=== PATIENT | female | born 1975 | race African-American/Black ===

== ENCOUNTER 2017-03-07 14:11 | Outpatient (CLI) | payer BC, MEDICARE ==
[~2017-03-07] VITALS: Ht 165.1 cm; Wt 74.8 kg
[2017-03-07 14:24] VITALS: BP 113/71
[2017-03-07 14:43] LABS: BASOPHILS % (AUTO) 1 % (0-10); EOSINOPHILS # (AUTO) 0.1 10^3/uL (0.0-0.3); EOSINOPHILS % (AUTO) 2 % (0-10); LYMPHOCYTES # (AUTO) 1.8 X 10^3 (1.0-4.0); LYMPHOCYTES % (AUTO) 32 % (12-44); MEAN CORPUSCULAR HEMOGLOBIN 18 PG (25-34); MEAN CORPUSCULAR HGB CONC 28 G/DL (32-36); MEAN CORPUSCULAR VOLUME 64 FL (80-99); MEAN PLATELET VOLUME 9.7 FL (7.4-10.4); MONOCYTES # (AUTO) 0.5 X 10^3 (0.0-1.0); MONOCYTES % (AUTO) 9 % (0-12); NEUTROPHILS # (AUTO) 3.1 X 10^3 (1.8-7.8); NEUTROPHILS % (AUTO) 57 % (42-75); PLATELET COUNT 262 10^3/uL (130-400); RED BLOOD COUNT 4.11 10^6/uL (4.35-5.85); RED CELL DISTRIBUTION WIDTH 21.1 % (10.0-14.5); WHITE BLOOD COUNT 5.4 10^3/uL (4.3-11.0)
[2017-03-14] MEDS ORDERED: IBUP-1780 PO (07:45)
[2017-03-14] MEDS ORDERED: OXYC-465 PO (07:45)
[2017-03-14] MEDS ORDERED: DOCU100C37 PO (07:45)
== END 2017-03-07 14:33 | disposition home or self-care (01) ==
LOC: PREOP 14:11
PROVIDERS: ATTEND Obstetrics & Gynecology
DX: Z01.812 Encounter for preprocedural laboratory examination (principal); Z11.2 Encounter for screening for other bacterial diseases; N92.0 Excessive and frequent menstruation with regular cycle; N85.2 Hypertrophy of uterus; D64.9 Anemia, unspecified
CPT/HCPCS: 36415; 85025; 86850; 86900; 86901; 87081

== ENCOUNTER 2017-03-12 12:50 | Outpatient (CLI) | payer BC ==
[~2017-03-12] VITALS: Ht 165.1 cm; Wt 74.8 kg
[2017-03-12] VITALS (10 sets, daily range): BP systolic 112–129; BP diastolic 74–94
[2017-03-12] MEDS ORDERED: NS IV 500 ML 500 ML IV SCH (14:00)
[2017-03-12] MEDS: ACETAMINOPHEN 500 MG TAB (TYLENOL) PO SCH ×2 (14:25→18:00)
[2017-03-12] MEDS ORDERED: diphenhydrAMINE 25 MG TAB (BENADRYL) PO NR (17:00)
[2017-03-14] MEDS ORDERED: DOCU100C37 PO (07:45)
[2017-03-14] MEDS ORDERED: IBUP-1780 PO (07:45)
[2017-03-14] MEDS ORDERED: OXYC-465 PO (07:45)
== END 2017-03-12 19:30 | disposition home or self-care (01) ==
LOC: SDC 12:50
PROVIDERS: ATTEND Obstetrics & Gynecology
DX: D64.9 Anemia, unspecified (principal)
CPT/HCPCS: 86850; 86900; 86901; 86920

== ENCOUNTER 2017-03-13 11:00 | Day surgery (SDC) | payer BC, MEDICARE ==
[~2017-03-13] VITALS: Ht 165.1 cm; Wt 74.8 kg
[2017-03-13 11:00] VITALS: BP 135/94
[2017-03-13] MEDS: LACTATED RINGERS 1,000 ML IV PRN ×3 (11:30→15:45)
[2017-03-13 11:52] LABS: BASOPHILS % (AUTO) 1 % (0-10); EOSINOPHILS # (AUTO) 0.2 10^3/uL (0.0-0.3); EOSINOPHILS % (AUTO) 3 % (0-10); LYMPHOCYTES # (AUTO) 1.6 X 10^3 (1.0-4.0); LYMPHOCYTES % (AUTO) 30 % (12-44); MEAN CORPUSCULAR HEMOGLOBIN 21 PG (25-34); MEAN CORPUSCULAR HGB CONC 30 G/DL (32-36); MEAN CORPUSCULAR VOLUME 69 FL (80-99); MEAN PLATELET VOLUME 10.1 FL (7.4-10.4); MONOCYTES # (AUTO) 0.7 X 10^3 (0.0-1.0); MONOCYTES % (AUTO) 13 % (0-12); NEUTROPHILS % (AUTO) 54 % (42-75); PLATELET COUNT 258 10^3/uL (130-400); RED BLOOD COUNT 4.39 10^6/uL (4.35-5.85); RED CELL DISTRIBUTION WIDTH 22.8 % (10.0-14.5); WHITE BLOOD COUNT 5.6 10^3/uL (4.3-11.0)
[2017-03-13] MEDS ORDERED: BUP/EPI 0.25% 1:200,000 (MARCAINE) 30 ML VIAL ONE (11:59)
[2017-03-13] MEDS ORDERED: ceFAZolin 1,000 MG (ANCEF) VIAL ONE (12:06)
[2017-03-13] MEDS ORDERED: NS (IVPB) 50 ML ONE (12:06)
[2017-03-13] MEDS ORDERED: ESTRADIOL VAGINAL CREAM 42.5 GM (ESTRACE) VG ONE (12:18)
[2017-03-13] MEDS ORDERED: D5 LR IV SOLUTION 1,000 ML IV SCH (12:26)
[2017-03-13] MEDS ORDERED: ONDANSETRON 4 MG/2 ML (SDV) Z0FRAN IVP PRN ×2 (12:30→17:45)
[2017-03-13] MEDS ORDERED: MEPERIDINE (DEMEROL) INJ 100 MG/ML IM PRN (12:30)
[2017-03-13] MEDS ORDERED: ESTROGENS CONJ IV 25 MG/5 ML (PREMARIN) VIAL IVP ONE (12:30)
[2017-03-13] MEDS ORDERED: PROMETHAZINE INJ 25 MG/ML (PHENERGAN) AMP IM PRN (12:30)
[2017-03-13] MEDS ORDERED: WATER (STERILE) FOR INJ 10 ML BTL INJ ONE (12:30)
[2017-03-13] MEDS ORDERED: ceFAZolin 1 GM/NS 50 ML IVPB IV ONE ×2 (12:45)
[2017-03-13] MEDS ORDERED: MIDAZOLAM 2 MG/2 ML (VERSED) VIAL ONE (13:14)
[2017-03-13] MEDS ORDERED: fentaNYL INJECTION 250 MCG/5 ML AMP ONE (13:14)
[2017-03-13] MEDS ORDERED: LACTATED RINGERS 1,000 ML IV ONE ×4 (13:15→17:58)
[2017-03-13] MEDS ORDERED: DEXAMETHASONE PF 10 MG/ML (DECADRON) VIAL ONE (13:15)
[2017-03-13] MEDS ORDERED: proPOfol 200 MG/20 ML (DIPRIVAN) VIAL IV ONE (13:15)
[2017-03-13] MEDS ORDERED: ONDANSETRON 4 MG/2 ML (SDV) Z0FRAN ONE ×2 (13:15→17:01)
[2017-03-13] MEDS ORDERED: LIDOCAINE PF 2% 10 ML (XYLOCAINE) AMP ONE (13:15)
[2017-03-13] MEDS ORDERED: ROCURONIUM 50 MG/5 ML (ZEMURON) VIAL IV ONE ×2 (13:15→15:16)
[2017-03-13] MEDS ORDERED: SEVOFLURANE (ULTANE) 15 ML INHAL SOLN ONE ×15 (13:15→17:10)
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
[2017-03-13] MEDS ORDERED: KETOROLAC 30 MG/ML VIAL IVP PRN (13:30)
[2017-03-13] MEDS ORDERED: GLYCOPYRROLATE 0.2 MG/ML (ROBINUL) 2 ML VIAL ONE ×2 (16:56→17:10)
[2017-03-13] MEDS ORDERED: FUROSEMIDE 40 MG/4 ML INJ (LASIX) ONE (16:56)
[2017-03-13] MEDS ORDERED: NEOSTIGMINE (BLOXIVERZ ) 1 MG/1ML 10 ML VIAL ONE (16:56)
[2017-03-13] MEDS ORDERED: morphine INJ 10 MG/ML 1ML (SYR OR VIAL) ONE ×2 (16:58→17:01)
[2017-03-13] MEDS ORDERED: HYDROmorphone (DILAUDID) 2 MG/ML VIAL ONE (17:00)
[2017-03-13] MEDS ORDERED: KETOROLAC 30 MG/ML VIAL ONE (17:01)
[2017-03-13] MEDS ORDERED: fentaNYL INJECTION 100 MCG/2 ML AMP ONE (17:01)
[2017-03-13] MEDS ORDERED: WATER (STERILE) FOR INJECTION 10 ML ONE (17:01)
[2017-03-13] MEDS ORDERED: ESTROGENS CONJ IV 25 MG/5 ML (PREMARIN) VIAL ONE (17:01)
[2017-03-13] MEDS: MEPERIDINE (DEMEROL) INJ 50 MG/ML IVP PRN ×2 (17:44→17:53)
[2017-03-13] MEDS ORDERED: morphine INJ 10 MG/ML 1ML (SYR OR VIAL) IVP PRN (17:45)
[2017-03-13] MEDS ORDERED: IBUPROFEN 800 MG (MOTRIN) TAB PO SCH (18:00)
[2017-03-13 18:10] VITALS: BP 118/80
[2017-03-13 18:20] LABS: ALANINE AMINOTRANSFERASE 28 U/L (0-55); ALBUMIN 3.6 G/DL (3.2-4.5); ANION GAP 11 MMOL/L (5-14); ASPARTATE AMINO TRANSFERASE 43 U/L (5-34); BILIRUBIN,TOTAL 0.6 MG/DL (0.1-1.0); BLOOD UREA NITROGEN 7 MG/DL (7-18); BUN/CREATININE RATIO 9; CALCIUM 8.5 MG/DL (8.5-10.1); CARBON DIOXIDE 20 MMOL/L (21-32); CHLORIDE 109 MMOL/L (98-107); CREATININE SERUM 0.81 MG/DL (0.60-1.30); GFR ESTIMATED > 60; GLUCOSE 113 MG/DL (70-105); POTASSIUM 3.4 MMOL/L (3.6-5.0); SODIUM 140 MMOL/L (135-145); TOTAL PROTEIN 6.8 G/DL (6.4-8.2)
[2017-03-13 20:15] VITALS: BP 113/73
[2017-03-13] MEDS: oxyCODONE/APAP 10/325MG (PERCOCET 10) TABLET PO PRN (21:22)
[2017-03-14] VITALS: BP 103/60
[2017-03-14] MEDS ORDERED: KETOROLAC 30 MG/ML VIAL ONE ×2 (01:02→05:27)
[2017-03-14] MEDS: oxyCODONE/APAP 10/325MG (PERCOCET 10) TABLET PO PRN (01:20)
[2017-03-14 05:58] VITALS: BP 95/58
--- NOTE | 2017-03-14 06:47 | OPERATIVE REPORT ---
DATE OF SERVICE: 03/13/2017 PREOPERATIVE DIAGNOSES: Uteromegaly, dysfunctional uterine bleeding, likely uterine fibroids and pelvic pain and pressure. POSTOPERATIVE DIAGNOSES: Uteromegaly, dysfunctional uterine bleeding, likely uterine fibroids and pelvic pain and pressure with markedly enlarged multiple fibroid uterus. OPERATIVE PROCEDURE: Total laparoscopic hysterectomy with bilateral salpingectomy and left oophorectomy as well as cystoscopy. OPERATIVE DESCRIPTION: With the patient in the supine position under satisfactory general anesthesia, she was repositioned in the dorsal lithotomy position in the Yon stirrups, prepped, and draped in the usual fashion for abdominal and vaginal surgery. A weighted speculum was placed in the posterior points of the vagina. The cervix was exposed and grasped anteriorly with a single toothed tenaculum. The uterus was sounded to 12.5 cm with uterine sound. The cervix was then serially dilated with Koko dilators to accommodate a EDIS II manipulator, which was placed using a 6 mm x 10 cm uterine probe and a 35 mm colpotomy ring. Sutures of #1 Vicryl were placed at the 3 and 9 o'clock positions of the cervix to affix the manipulator to the uterus. The patient was brought in low dorsolithotomy position. Crawford catheter was placed in the urinary bladder and left to dependent drainage. The uterus was palpable to fingerbreadth above the umbilicus. A 12-mm incision was then made 4 fingerbreadths above the umbilicus and a stab wound in the left upper quadrant at Sauceda's point. The Veress needle was placed through the stab wound into the abdominal cavity. Correct placement confirmed with the water drop test. The abdomen was insufflated with 2.4 liters of carbon dioxide. A 12 mm port was placed through the 12 mm supraumbilical incision and the laparoscope was introduced and incisions of 8 mm were made in the right and left inferior portion of the upper quadrant on each side, several fingerbreaths above the umbilicus. All 3-port sites had been infiltrated with 0.5% Marcaine with epinephrine before incision placement. The 8 mm ports were placed through the right and left lateral incision. The patient was placed into Trendelenburg allowing the bowels to spill out of the pelvis. The pelvis was completely filled with multiple fibroid uterus. The uterus was reasonably mobile with manipulation, though the da Ender console was advanced onto the patient and docked and operative instruments were placed in the right and left lateral ports. I retired to the da Ender console. At the console, the uterus was examined. The right ovary was visible on the right side of the uterus. The left ovary was somewhat behind the uterus and was not clearly visible. The uterus again with multiple lobulated consistent with multiple uterine fibroids. The uterus could be manipulated around both with the vaginal manipulator and with the abdominal instruments. A 5 mm port had been placed between the midline and the right lateral port for additional manipulation assistance. Decision was made to proceed with the intended procedure, as there was no other concerning pathology. The right fallopian tube was grasped and elevated. The vessel sealer was used to clamp, cauterize and divide the mesosalpinx across to the side of uterus and then the ovary was from the uterus by using the vessel sealer across the uteroovarian pedicle. The round ligament was treated in the same manner as was the broad ligament and finally down on to the cardinal ligament. The same procedure was performed on the left. It was found that the IP ligament coursed down to the uterus and then reflected back to the ovary and there was not a plane for the fallopian tube from the ovary or the ovary from the uterus without comprising the blood supply. A decision was made to go ahead with left salpingo-oophorectomy. So, the IP ligament was clamped, cauterized and divided and then that was continued across to the round ligament and then across to the side of the uterus and down onto the cardinal ligament. Again, all of this dissection thus far had been done with some degree of difficulty using the assistant professor of art manipulator with the blunt instrument in to position and retract and hold the uterus to expose the area of dissection. With the adnexa mostly , attention was then turned to releasing the bladder. Again, the accessory manipulator with the bedside assistant professor of art was vital in proceeding with the surgery. The vessel sealer was replaced with a Monopolar shear. The anterior lower uterine segment was with some difficulty was exposed. The peritoneum was divided and the bladder carefully dissected well down off of the lower uterine segment off the cervix. A colpotomy incision was started at 12 o'clock position onto the colpotomy ring. That was continued first to the right, then to the left and then continuing circumferentially first clockwise and counterclockwise to expose the colpotomy ring. Again, there was some difficulty as the multiple numerous protruding fibroids made access continuously difficult, but by repositioning the retractors and repositioning the uterus eventually, the colpotomy was extended from the 9 o'clock to the 3 o'clock position around the cervix. Then, the uterus was rotated counterclockwise. The dissection was continued clockwise passed the cardinal ligament and to the uterosacral ligament. The uterus was then repositioned to allow access to the left side of the uterus and then dissection and exposure of the colpotomy ring was continued from the 9 o'clock position to about the 7 o'clock position again down onto the uterosacral ligament on that side. A number of vessels were encountered during this dissection. They were clamped, cauterized and sealed and divided in the process. The uterus was then displaced anteriorly. Again, the uterus was quite bulky. It was a 20-week size uterus. With some difficulty, the uterus was elevated. The assistant professor of art kept the uterus elevated. There was approximately 1 cm of posterior low uterine segment still attached to the vagina. This was divided and the uterus was completely free. There was no possibility of extracting the uterus intact, so the da Ender was undocked from the patient and the patient brought out of Trendelenburg and I went down below to morcellate and remove the uterus through the vagina. With the patient in the dorsolithotomy position, a weighted speculum was placed to the posterior points of the vagina and through the vaginal cuff into the cul-de-sac. Retractors were placed anteriorly, posteriorly using Diva retractors. The cervix was grasped with several tenacula and or towel clips and then coring morselization was performed removing the uterus in multiple relatively large fragments until the bulk of the uterus was reduced enough to allow removal of the remainder of the uterus. The anterior specimen was sent to pathology for permanent section in multiple pieces. The instruments were removed from the vagina. The patient was brought back into dorsolithotomy position, replaced in Trendelenburg, the da Ender console were advanced back on the patient and docked and then operative instruments were replaced in the ports. The pelvis was hemostatic. There had been about 3 or 400 cc of blood released when we removed the uterus. I suspect that that was primarily blood that had been retained in the uterus and morselization allowed that blood to seep out. Again, the uterus was quite large and would have had probably an excess of 500 cc of blood contained in it. The uterus was relatively bloodless by the time we had it completely extracted. The vaginal cuff was hemostatic. The vaginal cuff was closed with 3 V-Loc barbed sutures starting first on the right angle and continuing to about a [address] across the vaginal cuff, being sure to include the uterine vessels on the right side into the closure and then the same thing was done on the left. With the second suture and then a third suture was used to close the midportion of the cuff and reperitonealize the vaginal cuff. Both ureters were seen to peristalse before starting on the right, the left side could not be seen until after dissection was started, but it was seen to peristalse during the dissection and during the removal of the uterus and then during the closure of the vaginal cuff. The dissection was relatively closed in the matter of probably less than a centimeter on the left from the ureter because of the distorted course of the uterus due to this large uterus. The decision was made to do cystoscopy on completion of the laparascopic portion. With the pelvis completely hemostatic and the vaginal cuff closed, the pelvis was irrigated, hemostasis was assured, the laparoscopic portion of the procedure was terminated. The operative instruments were removed under direct vision and the da Ender console was undocked and removed from the patient. The operative ports were removed under direct vision. The abdomen was evacuated and insufflating gas in the process. Hemostasis was complete at the port sites. All 4-port sites were closed with deepali after closing the supraumbilical 12 mm incision with a [id number] suture of Vicryl in the fascia. The patient now brought back in low dorsolithotomy position, repositioned on the table for cystoscopy. The cystoscope was introduced and using saline as a distending medium the bladder was examined, the bladder was intact itself. Both ureters were seen to peristalse with easy reflux and repeated peristalsis on both sides. With that confirmed, the procedure was terminated. The speculum was replaced in the vagina. The vaginal cuff examined. It was completely hemostatic and reapproximated nicely. The sponge and needle counts were correct at this point. Estimated blood loss was around 500 cc. The patient tolerated the procedure well and was uneventfully awakened from her general anesthesia and transferred to the recovery room in stable condition with plans for 23-hour observation. Job ID: [id number] DocumentID: [id number] Dictated Date: 03/13/2017 17:15:36 Commercial Lending Assistant Date: 03/14/2017 06:46:14 Dictated By: MAXIMUS VELÁZQUEZ MD
--- NOTE | 2017-03-14 07:44 | Progress Note-Standard ---
Standard Progress Note Progress Notes/Assess & Plan Progress/Assessment & Plan this patient is without complaint. She is ambulating, tolerating by mouth well , has good pain control, bladder trial is ongoing she has not voided as of yet. Patient denies chest pain, denies shortness breath, denies nausea vomiting, denies headache. Patient is requesting discharge home. Vital Signs Date Time Temp Pulse Resp B/P (MAP) Pulse Ox O2 Delivery O2 Flow Rate FiO2 03/14/17 05:58 98.0 70 18 95/58 97 03/14/17 00:00 98.6 67 18 103/60 97 Room Air 03/13/17 20:15 97.6 70 19 113/73 99 Room Air 03/13/17 18:10 98.0 58 16 118/80 100 Room Air 03/13/17 11:00 97.7 60 16 135/94 100 Room Air I & O 03/14/17 07:00 Intake Total 8050 ml Output Total 4150 ml Balance 3900 ml Laboratory Tests Test 03/13/17 11:05 03/13/17 11:42 03/13/17 17:55 03/13/17 21:37 Range/Units Urine Test NEGATIVE NEGATIVE White Blood Count 5.6 4.3-11.0 10^3/uL Red Blood Count 4.39 4.35-5.85 10^6/uL Hemoglobin 9.1 #L 11.5-16.0 G/DL Hematocrit 30 L 35-52 % Mean Corpuscular Volume 69 L 80-99 FL Mean Corpuscular Hemoglobin 21 L 25-34 PG Mean Corpuscular Hemoglobin Concent 30 L 32-36 G/DL Red Cell Distribution Width 22.8 H 10.0-14.5 % Platelet Count 258 130-400 10^3/uL Mean Platelet Volume 10.1 7.4-10.4 FL Neutrophils (%) (Auto) 54 42-75 % Lymphocytes (%) (Auto) 30 12-44 % Monocytes (%) (Auto) 13 H 0-12 % Eosinophils (%) (Auto) 3 0-10 % Basophils (%) (Auto) 1 0-10 % Neutrophils # (Auto) 3.0 1.8-7.8 X 10^3 Lymphocytes # (Auto) 1.6 1.0-4.0 X 10^3 Monocytes # (Auto) 0.7 0.0-1.0 X 10^3 Eosinophils # (Auto) 0.2 0.0-0.3 10^3/uL Basophils # (Auto) 0.0 0.0-0.1 10^3/uL Sodium Level 140 135-145 MMOL/L Potassium Level 3.4 L 3.6-5.0 MMOL/L Chloride Level 109 H 98-107 MMOL/L Carbon Dioxide Level 20 L 21-32 MMOL/L Anion Gap 11 5-14 MMOL/L Blood Urea Nitrogen 7 7-18 MG/DL Creatinine 0.81 0.76 0.60-1.30 MG/DL Estimat Glomerular Filtration Rate > 60 BUN/Creatinine Ratio 9 Glucose Level 113 H 70-105 MG/DL Calcium Level 8.5 8.5-10.1 MG/DL Total Bilirubin 0.6 0.1-1.0 MG/DL Aspartate Amino Transf (AST/SGOT) 43 H 5-34 U/L Alanine Aminotransferase (ALT/SGPT) 28 0-55 U/L Alkaline Phosphatase 32 L 40-136 U/L Total Protein 6.8 6.4-8.2 G/DL Albumin 3.6 3.2-4.5 G/DL Test 03/14/17 06:25 Range/Units Creatinine 0.74 0.60-1.30 MG/DL vital signs are stable. Patient is afebrile. patient's lab work has been normal and particularly creatinine is normal and show no increased since her surgery. Abdomen is benign. Bowel sounds are present. There is normal postoperative tenderness across the abdomen. Extremities show no clubbing cyanosis. There is no Homans sign. assessment and plan postoperative day number 1 status post TLH with bilateral salpingectomy and left oophorectomy. Patient is convalescing well. When she demonstrates adequate lateral function will allow discharge home with follow-up in clinic. If her bladder does not recover we will hold her discharge until it does Final Diagnosis uterine fibroids/menorrhagia MAXIMUS VELÁZQUEZ MD March 14, 2017 7:44 am
[2017-03-14] MEDS ORDERED: DOCU100C37 PO (07:45)
[2017-03-14] MEDS ORDERED: IBUP-1780 PO (07:45)
[2017-03-14] MEDS ORDERED: OXYC-465 PO (07:45)
--- NOTE | 2017-03-14 07:47 | Discharge Instructions ---
Discharge Instructions Discharge Medications New, Converted or Re-Newed RX: RX on Chart Patient Instructions Patient Instructions: as directed Return to The Hospital For: as directed Activity & Diet Discharge Diet: No Restrictions Activity as Tolerated: No Orders-Post D/C & Referrals Follow Up Appt: return to clinic on Saturday, March 18, 2017 Call to make follow up appt. for patient in 4 weeks. Activity: Rest for 24 hours, than as tolerated. Wound Care: May remove Band-Aid tomorrow. Replace as desired. Keep incisions clean and dry. Wash daily with soap and water. Please call in RX to patient pharmacy. Diet: As tolerated-Clear Liquids only if nauseated. Tomorrow, may shower or tub bathe as desired. No driving for 24 hours, no alcoholic beverages for 24 hours, and nothing per vagina (no tampons, douching, or intercourse) for 8 weeks. Patient to return to the clinic as soon as possible for: Temperature greater than 101F, Severe Pain, Foul discharge from incision or vagina, Excessive Bleeding (more than a period). MAXIMUS VELÁZQUEZ MD March 14, 2017 7:47 am
[2017-03-14] MEDS ORDERED: DOCUSATE SODIUM 100 MG (COLACE) CAP PO SCH (09:00)
== END 2017-03-14 11:30 | disposition home or self-care (01) ==
LOC: SDC 11:00 → WS 18:35 → SDC 03-14 11:30
PROVIDERS: ATTEND Obstetrics & Gynecology
DX: N72 Inflammatory disease of cervix uteri (principal); N83.8 Other noninflammatory disorders of ovary, fallopian tube and broad ligament; N83.202 Unspecified ovarian cyst, left side; N84.1 Polyp of cervix uteri; D25.1 Intramural leiomyoma of uterus; F32.9 Major depressive disorder, single episode, unspecified; F41.9 Anxiety disorder, unspecified
CPT/HCPCS: 36415; 80053; 82565; 84703; 85025; 94664; 96361; 96375; 96376